=== PATIENT | male | born 2000 | race Caucasian/White ===

== ENCOUNTER 2020-12-10 05:53 | Emergency (ER) | payer OTHER ==
[~2020-12-10] VITALS: Ht 188 cm; Wt 68.0 kg
[2020-12-10] MEDS ORDERED: SODIUM CHLORIDE 0.9% 1,000 ML IV ONE (07:15)
[2020-12-10 10:51] VITALS: BP 108/61
== END 2020-12-10 11:00 | disposition home or self-care (01) ==
LOC: ER 05:53
DX: F14.188 Cocaine abuse with other cocaine-induced disorder (principal); I45.10 Unspecified right bundle-branch block
CPT/HCPCS: 82962; 93005; 96360; 99283; J7030